=== PATIENT | female | born 1985 | race African-American/Black ===

== ENCOUNTER 2024-11-21 20:14 | Emergency (ER) | payer OTHER ==
[2024-11-21] MEDS ORDERED: Naloxone 0.4 MG/ML SDV IVPUSH PRN (20:51)
[2024-11-21] MEDS ORDERED: HYDROmorphone 2 MG/ML SDV IM ONE (20:51)
[2024-11-21] MEDS: valACYclovir 1,000 MG Tab PO SCH (21:31)
== END 2024-11-21 21:33 | disposition home or self-care (01) ==
LOC: FB.ED 20:14
DX: B00.9 Herpesviral infection, unspecified (principal); Z79.899 Other long term (current) drug therapy
CPT/HCPCS: 99283; A9270